=== PATIENT | female | born 1965 | race Caucasian/White ===

== ENCOUNTER 2021-03-13 19:10 | Inpatient (IN) | payer MEDICAID, OTHER ==
[~2021-03-13] VITALS: Ht 157.5 cm; Wt 60.4 kg
[2021-03-13] MEDS ORDERED: LORazepam 2 MG TABLET PO PRN (20:00)
[2021-03-13] MEDS ORDERED: HALOPERIDOL 5 MG TABLET PO PRN (20:45)
[2021-03-13 20:53] LABS: COVID AG,FIA SOURCE NASAL SWAB
[2021-03-13 21:02] LABS: AMPHET/METH SCREEN,URINE NEGATIVE (NEGATIVE); BARBITURATE SCREEN, URINE NEGATIVE (NEGATIVE); BENZODIAZEPINES SCREEN,URINE NEGATIVE (NEGATIVE); CANNABINOID SCREEN,URINE POSITIVE (NEGATIVE); COCAINE SCREEN,URINE NEGATIVE (NEGATIVE); METHADONE SCREEN, URINE NEGATIVE (NEGATIVE); OPIATE SCREEN,URINE NEGATIVE (NEGATIVE); PHENCYCLIDINE SCREEN,URINE NEGATIVE (NEGATIVE)
[2021-03-13 21:13] LABS: APPEARANCE,URINE CLOUDY (CLEAR); BILIRUBIN,URINE NEGATIVE (NEGATIVE); GLUCOSE, URINE (UA) NEGATIVE (NEGATIVE); KETONES,URINE NEGATIVE (NEGATIVE); LEUKOCYTE ESTERASE ,URINE LARGE (NEGATIVE); NITRATE,URINE NEGATIVE (NEGATIVE); OCCULT BLOOD,URINE TRACE (NEGATIVE); PH,URINE 7.5 (5.0-8.0); PROTEIN,URINE POS 1+ (NEGATIVE)
[2021-03-13 21:21] LABS: BASOPHILS % (AUTO) 1.3 % (0.0-2.0); EOSINOPHILS % (AUTO) 4.2 % (1.0-6.0); HEMOGLOBIN 9.4 g/dL (12.0-16.0); LYMPHOCYTES # (AUTO) 1.9 K/uL (1.0-4.8); LYMPHOCYTES % (AUTO) 30.9 % (22.0-44.0); MEAN CORPUSCULAR HGB CONC 30.3 G/dL (31.0-37.0); MEAN CORPUSCULAR VOLUME 76 fL (80-100); MONOCYTES # (AUTO) 0.5 K/uL (0.1-1.0); MONOCYTES % (AUTO) 8.6 % (2.0-9.0); NEUTROPHILS # (AUTO) 3.4 K/uL (1.8-7.7); PLATELET COUNT (AUTO) 227 K/uL (150-450); RED CELL DISTRIBUTION WIDTH 20.4 % (11.5-14.5)
[2021-03-13 21:29] LABS: ANION GAP 7 mmol/L (8-16); CALCIUM, TOTAL 8.2 mg/dL (8.8-10.5); CARBON DIOXIDE 27 mmol/L (22-29); CHLORIDE 108 mmol/L (98-107); CREATININE 0.82 mg/dL (0.60-1.30); GLOMERULAR FILTR. RATE CALC > 60 mL/min (>60); GLUCOSE,RANDOM 113 mg/dL (70-110); POTASSIUM 3.5 mmol/L (3.5-5.1); SODIUM SERUM 142 mmol/L (136-145); UREA NITROGEN, BLOOD 13 mg/dL (7-18)
[2021-03-13] MEDS ORDERED: NITROFURANTOIN MACROCRYSTAL 100 MG CAPSULE PO ONE (21:30)
[2021-03-13 21:31] LABS: BACTERIA,URINE Many /HPF (None Seen); RENAL EPITHELIAL CELLS,URINE Few /LPF (None Seen); SQUAMOUS EPITHELIAL CELL,UR Moderate /LPF (None Seen); WBC,URINE >100 /HPF (0-5)
[2021-03-13 21:34] LABS: ALANINE AMINOTRANSFERASE 24 U/L (12-78); ALBUMIN 3.6 g/dL (3.4-5.0); ALKALINE PHOSPHATASE 148 U/L (46-116); ASPARTATE AMINOTRANSFERASE 36 U/L (15-37); BILIRUBIN,TOTAL 0.4 mg/dL (0.1-1.0); TOTAL PROTEIN, SERUM 7.4 g/dL (6.4-8.2)
[2021-03-14] VITALS (11 sets, daily range): BP systolic 138–171; BP diastolic 69–102
[2021-03-14] MEDS ORDERED: PNEUMOCOCCAL VACCINE POLYVALENT 0.5 ML VIAL [PPSV23] IM. ONE (02:00)
[2021-03-14] MEDS ORDERED: ACETAMINOPHEN 325 MG TABLET PO PRN ×2 (06:30→07:00)
[2021-03-14] MEDS ORDERED: ONDANSETRON HCL 4 MG TABLET PO PRN (07:00)
[2021-03-14] MEDS ORDERED: GuaiFENesin/D-METHORPHAN [SUGAR-FREE] 200-20MG/10 ML SYRUP UDCUP PO PRN (07:00)
[2021-03-14] MEDS ORDERED: LORazepam 2 MG TABLET PO PRN (07:00)
[2021-03-14] MEDS ORDERED: CloNIDine HCL 0.1 MG TABLET PO PRN (07:00)
[2021-03-14] MEDS ORDERED: LOPERAMIDE HCL 2 MG CAPSULE PO PRN (07:00)
[2021-03-14] MEDS ORDERED: PETROLATUM,WHITE 28 GM JELLY TP PRN (07:00)
[2021-03-14] MEDS ORDERED: IBUPROFEN 400 MG TABLET PO PRN (07:00)
[2021-03-14] MEDS ORDERED: DOCUSATE SODIUM 100 MG CAPSULE PO PRN (07:00)
[2021-03-14] MEDS ORDERED: MAGNESIUM HYDROXIDE SUSPENSION 30 ML UDCUP PO PRN (07:00)
[2021-03-14] MEDS ORDERED: ALBUTEROL SULFATE HFA 90 MCG/PUFF 8 GM INHALER IH PRN (07:00)
[2021-03-14] MEDS ORDERED: MAG HYDROX/AL HYDROX/SIMETH ES 30 ML SUSPENSION UDCUP PO PRN (07:00)
[2021-03-14] MEDS ORDERED: NICOTINE 14 MG/24 HOUR PATCH TD PRN (07:00)
[2021-03-14 08:17] LABS: CHOL/HDL RATIO 2.4 (3.9-5.7)
[2021-03-14] MEDS: LORazepam 2 MG TABLET PO SCH ×4 (08:55→20:11)
[2021-03-14] MEDS: CEPHALEXIN MONOHYDRATE 500 MG CAPSULE PO SCH ×3 (08:55→16:09)
[2021-03-14] MEDS: LABETALOL HCL 200 MG TABLET PO SCH (16:30)
[2021-03-14] MEDS ORDERED: CloNIDine HCL 0.1 MG TABLET PO SCH (17:00)
[2021-03-15] MEDS: LABETALOL HCL 200 MG TABLET PO SCH ×4 (00:07→23:43)
[2021-03-15] MEDS: ZOLPIDEM TARTRATE 10 MG TABLET PO PRN ×2 (00:07→19:51)
[2021-03-15 00:53] VITALS: BP 139/82
[2021-03-15] MEDS: LEVOTHYROXINE SODIUM 100 MCG TABLET PO SCH (06:43)
[2021-03-15] MEDS: CEPHALEXIN MONOHYDRATE 500 MG CAPSULE PO SCH ×3 (08:12→16:13)
[2021-03-15] MEDS: LORazepam 2 MG TABLET PO SCH ×4 (08:12→19:51)
[2021-03-15] MEDS: POTASSIUM CHLORIDE 10 MEQ ER TABLET PO SCH (08:12)
[2021-03-15 08:28] VITALS: BP 116/67
[2021-03-15 08:29] VITALS: BP 116/67
[2021-03-15 16:12] VITALS: BP 127/71
[2021-03-15 16:15] VITALS: BP 127/71
[2021-03-16] VITALS: BP 114/62
[2021-03-16] MEDS: LEVOTHYROXINE SODIUM 100 MCG TABLET PO SCH (06:18)
[2021-03-16] MEDS ORDERED: LORazepam 1 MG TABLET PO PRN (07:00)
[2021-03-16] MEDS: POTASSIUM CHLORIDE 10 MEQ ER TABLET PO SCH (10:08)
[2021-03-16] MEDS: CEPHALEXIN MONOHYDRATE 500 MG CAPSULE PO SCH ×3 (10:08→16:18)
[2021-03-16] MEDS: LORazepam 1 MG TABLET PO SCH ×4 (10:08→20:40)
[2021-03-16] MEDS: LABETALOL HCL 200 MG TABLET PO SCH ×3 (10:09→23:49)
[2021-03-16 10:29] VITALS: BP 142/96
[2021-03-16 16:23] VITALS: BP 131/84
[2021-03-16 18:00] VITALS: BP 131/84
[2021-03-17 00:31] VITALS: BP 136/90
[2021-03-17 04:22] VITALS: BP 136/90
[2021-03-17] MEDS: LEVOTHYROXINE SODIUM 100 MCG TABLET PO SCH (06:29)
[2021-03-17] MEDS ORDERED: LORazepam 1 MG TABLET PO PRN (07:00)
[2021-03-17 08:18] VITALS: BP 125/67
[2021-03-17] MEDS: POTASSIUM CHLORIDE 10 MEQ ER TABLET PO SCH (09:26)
[2021-03-17] MEDS: LABETALOL HCL 200 MG TABLET PO SCH ×2 (09:26→16:11)
[2021-03-17] MEDS: CEPHALEXIN MONOHYDRATE 500 MG CAPSULE PO SCH ×3 (09:26→16:12)
[2021-03-17] MEDS: SERTRALINE HCL 50 MG TABLET PO SCH (15:14)
[2021-03-17 16:12] VITALS: BP 122/70
[2021-03-17 18:06] VITALS: BP 122/70
[2021-03-18 05:58] VITALS: BP 125/77
[2021-03-18 06:24] VITALS: BP 125/77
[2021-03-18] MEDS: LEVOTHYROXINE SODIUM 100 MCG TABLET PO SCH (06:29)
[2021-03-18 08:10] VITALS: BP 112/66
[2021-03-18] MEDS: SERTRALINE HCL 50 MG TABLET PO SCH (09:05)
[2021-03-18] MEDS: POTASSIUM CHLORIDE 10 MEQ ER TABLET PO SCH (09:05)
[2021-03-18] MEDS: LABETALOL HCL 200 MG TABLET PO SCH ×3 (09:05→16:19)
[2021-03-18] MEDS: CEPHALEXIN MONOHYDRATE 500 MG CAPSULE PO SCH ×3 (09:05→16:19)
[2021-03-18 11:44] VITALS: BP 112/66
[2021-03-18 16:10] VITALS: BP 134/75
[2021-03-18] MEDS ORDERED: SERT-158 PO (18:44)
[2021-03-18] MEDS ORDERED: POTA-92 PO (18:45)
[2021-03-18] MEDS ORDERED: CEPH500C3 PO (18:45)
[2021-03-18] MEDS ORDERED: LABE200T56 PO (18:46)
== END 2021-03-18 20:19 | disposition home or self-care (01) | DRG 750 ==
LOC: EMS 19:10 → B3A 20:37
PROVIDERS: ADMIT Psychiatry & Neurology Psychiatry; ATTEND Psychiatry & Neurology Psychiatry
DX: F25.1 Schizoaffective disorder, depressive type (principal); R45.851 Suicidal ideations; F10.10 Alcohol abuse, uncomplicated; I10 Essential (primary) hypertension; N39.0 Urinary tract infection, site not specified; E78.5 Hyperlipidemia, unspecified; D64.9 Anemia, unspecified; F41.9 Anxiety disorder, unspecified; Z20.822 Contact with and (suspected) exposure to COVID-19
CPT/HCPCS: 80053; 80061; 81001; 85025; 87077; 87086; 87186; 99285; G0480; Q0162